=== PATIENT | female | born 1990 | race Caucasian/White ===

== ENCOUNTER 2017-02-03 21:53 | Emergency (ER) | payer OTHER ==
[~2017-02-03] VITALS: Ht 162.6 cm; Wt 55.1 kg
[2017-02-03 22:15] LABS: ADD MIUA? YES; BILIRUBIN NEGATIVE; BLOOD NEGATIVE; COLOR YELLOW ((YELLOW)); GLUCOSE (STRIP) NEGATIVE; KETONES 5; LEUKOCYTES TRACE; NITRITE NEGATIVE; PROTEIN (STRIP) NEGATIVE; SPECIFIC GRAVITY 1.012 (1.000-1.030); UROBILINOGEN 0.2 MG/DL (0.2-1.0)
[2017-02-03 22:28] LABS: MCH 29.8 PG (29.0-34.0); MCHC 35.1 G/DL (30.0-36.0); MCV 84.7 FL (83-99); MEAN PLAT.VOLUME 8.8 uM^3 (9.5-12.4); PLATELET COUNT 388 K/uL (156-360); RBC DIS.WIDTH-CV 12.1 % (11.8-14.6); RBC DIS.WIDTH-SD 37.3 % (39-53); RED BLOOD COUNT 4.84 M/uL (3.80-5.20); WHITE BLOOD COUNT 11.9 K/uL (4.1-10.2)
[2017-02-03 22:28] LABS: RED BLOOD CELLS 0-5 /HPF (0-5); WHITE BLOOD CELLS 0-5 /HPF (0-5)
[2017-02-03 22:29] LABS: BACTERIA 1+ /HPF; CASTS PRESENT /LPF; CRYSTALS NONE SEEN; EPITHELIAL CELLS 1+ /HPF; HYALINE CASTS 0-5 /LPF; MUCUS NONE SEEN /LPF; UCUL ADDED? NO
[2017-02-03 22:37] LABS: CHLORIDE 93 mEq/L (99-109); POTASSIUM 3.3 mEq/L (3.7-5.4); SODIUM 127 mEq/L (136-147)
[2017-02-03 22:39] LABS: GLUCOSE 105 mg/dL (70-99)
[2017-02-03 22:40] LABS: ANION GAP 12 MEQ/L (2-14)
[2017-02-03 22:41] LABS: TOTAL BILIRUBIN 0.8 mg/dL (0.0-1.0)
[2017-02-03 22:42] LABS: ALKALINE PHOSPHATASE 53 IU/L (3-129)
[2017-02-03 22:43] LABS: GFR ESTIMATE (CALCULATED) > 59 mL/min/
[2017-02-03 22:44] LABS: UREA NITROGEN (BUN) 12 mg/dL (9-23)
[2017-02-03 22:46] LABS: LIPASE 33 U/L (1.0-51.0)
[2017-02-03 22:52] LABS: QUANTITATIVE HCG < 4.0 MIU/ML
[2017-02-03 23:37] LABS: ADD MEDTOX COMMENT Y; AMPHETAMINE NEGATIVE (500 ng/mL); BARBITURATES NEGATIVE (200 ng/mL); BENZODIAZEPINES NEGATIVE (150 ng/mL); COCAINE NEGATIVE (150 ng/mL); INTERNAL CONTROLS VALID? YES; METHADONE NEGATIVE (200 ng/mL); METHAMPHETAMINE NEGATIVE (500 ng/mL); OPIATES (MORPHINE) NEGATIVE (100 ng/mL); OXYCODONE NEGATIVE (100 ng/mL); PHENCYCLIDINE NEGATIVE (25 ng/mL); PROPOXYPHENE NEGATIVE (300 ng/mL); THC CANNABINOIDS PRESUMPTIVE POSITIVE (50 ng/mL); TRICYCLIC ANTIDEPRESSANTS NEGATIVE (300 ng/mL)
[2017-02-04] MEDS ORDERED: REGLAN10 MG PO (00:23)
[2017-02-04 01:09] VITALS: BP 129/82
== END 2017-02-04 01:40 | disposition home or self-care (01) ==
LOC: RME 21:53 → EME 21:53 → RME 02-04 01:40
DX: R10.9 Unspecified abdominal pain (principal); R11.2 Nausea with vomiting, unspecified; R68.81 Early satiety; E86.0 Dehydration; E87.6 Hypokalemia; K21.9 Gastro-esophageal reflux disease without esophagitis
CPT/HCPCS: 74022; 80053; 81003; 83690; 84702; 84999; 85027; 99281; 99285; J1200; J2765; J7030